=== PATIENT | female | born 1990 | race Caucasian/White ===

== ENCOUNTER → 2019-12-16 | Outpatient (REF) | payer OTHER ==
[2019-12-16 13:50] LABS: HEMATOCRIT 37.7 % (36.0-47.0); HEMOGLOBIN 12.5 g/dl (12.0-15.5); MEAN CORPUSCULAR HEMOGLOBIN 28.3 pg (27.0-33.0); MEAN CORPUSCULAR HGB CONC 33.2 g/dl (32.0-36.5); MEAN CORPUSCULAR VOLUME 85.5 fl (80.0-96.0); PLATELET COUNT, AUTOMATED 260 10^3/uL (150-450); RED BLOOD COUNT 4.41 10^6/uL (4.00-5.40); WHITE BLOOD COUNT 6.2 10^3/uL (4.0-10.0)
[2019-12-16 15:00] LABS: HEPATITIS C VIRUS ABY INDEX 0.1 INDEX (<0.8); HIV 1&2 SCREEN CENTAUR NEGATIVE (NEGATIVE)
[2019-12-18 14:12] LABS: HSV TYPE I IgM AB <1:10 titer (<1:10); HSV TYPE II IgG SPECIFIC <0.91 index (0.00-0.90); HSV TYPE II IgM ABY <1:10 titer (<1:10)
== END ==
LOC: M PLALAB 09:36
PROVIDERS: ATTEND Obstetrics & Gynecology
DX: Z34.91 Encounter for supervision of normal pregnancy, unspecified, first trimester (principal); Z3A.09 9 weeks gestation of pregnancy

== ENCOUNTER → 2020-01-06 | Outpatient (REF) | payer OTHER | LOC: M PLALAB 11:38 | PROVIDERS: ATTEND Obstetrics & Gynecology | DX: Z34.91 Encounter for supervision of normal pregnancy, unspecified, first trimester (principal); Z3A.12 12 weeks gestation of pregnancy ==

== ENCOUNTER → 2020-01-06 | Outpatient (CLI) | payer OTHER | LOC: M PLALAB 12:01 | PROVIDERS: ATTEND Advanced Practice Midwife | DX: Z34.81 Encounter for supervision of other normal pregnancy, first trimester (principal); Z3A.00 Weeks of gestation of pregnancy not specified ==

== ENCOUNTER → 2020-02-01 | Outpatient (CLI) | payer OTHER, SELFPAY | LOC: M LABSMTC 17:26 | PROVIDERS: ATTEND Pediatrics | DX: Z20.828 Contact with and (suspected) exposure to other viral communicable diseases (principal) ==

== ENCOUNTER → 2020-02-24 | Outpatient (CLI) | payer OTHER ==
--- NOTE | 2020-02-24 11:59 | REP ---
INDICATION: ANATOMY COMPARISON: None. TECHNIQUE: Transabdominal obstetrical ultrasound with color Doppler evaluation. FINDINGS: Examination demonstrates a single live intrauterine in transverse presentation. motion is identified by technologist. Placenta is noted posterior and grade 0 without evidence for placenta previa or abruption. Amniotic fluid volume is normal. Cervix measures 3.5 cm in length and appears closed.. Gestational age by LMP 19 weeks 3 days with ERIC 07/17/2020. Gestational age by current measurements 19 weeks 3 days with ERIC 07/17/2020. FHR equals 150 beats per minute. BPD: 4.4 cm 19 weeks 2 days HC: 16.6 cm 19 weeks 2 days AC: 13.9 cm 19 weeks 2 days FL: 3.1 cm 19 weeks 4 days HL: 3.0 cm 19 weeks 6 days HC/AC: 1.20 Estimated weight 291 grams (46thpercentile). Anatomical assessment demonstrates normal structures including cranium, choroid plexus, cavum, cerebellum/posterior fossa, facial features, lungs, four-chamber heart/ventricular outflow tracts, diaphragm, stomach, cord insertion/three-vessel cord, kidneys/bladder, spine, and extremities. IMPRESSION: Single live intrauterine in transverse lie demonstrating appropriate interval growth. Anatomical assessment is complete and normal. <Electronically signed by Abel Gonzales > 02/24/20 [id number]
== END ==
LOC: M WHC 10:10
PROVIDERS: ATTEND Obstetrics & Gynecology
DX: Z36.9 Encounter for antenatal screening, unspecified (principal); Z3A.19 19 weeks gestation of pregnancy

== ENCOUNTER → 2020-04-15 | Outpatient (REF) | payer OTHER ==
[2020-04-15 15:53] LABS: HEMATOCRIT 34.3 % (36.0-47.0); MEAN CORPUSCULAR HEMOGLOBIN 27.4 pg (27.0-33.0); MEAN CORPUSCULAR HGB CONC 32.1 g/dl (32.0-36.5); MEAN CORPUSCULAR VOLUME 85.3 fl (80.0-96.0); PLATELET COUNT, AUTOMATED 239 10^3/uL (150-450); RED BLOOD COUNT 4.02 10^6/uL (4.00-5.40); WHITE BLOOD COUNT 8.2 10^3/uL (4.0-10.0)
== END ==
LOC: M PLALAB 11:57
PROVIDERS: ATTEND Advanced Practice Midwife
DX: Z34.92 Encounter for supervision of normal pregnancy, unspecified, second trimester (principal)

== ENCOUNTER → 2020-06-15 | Outpatient (REF) | payer OTHER | LOC: M SFHCWAGY 16:53 | PROVIDERS: ATTEND Advanced Practice Midwife | DX: Z36.89 Encounter for other specified antenatal screening (principal) | CPT/HCPCS: 87081; G0463 ==

== ENCOUNTER 2020-07-13 12:00 | Inpatient (IN) | payer OTHER ==
[~2020-07-13] VITALS: Ht 157.5 cm; Wt 75.5 kg
[2020-07-13] MEDS ORDERED: LIDOCAINE 1% MDV 20ML VIAL SC ONE (12:15)
[2020-07-13] MEDS ORDERED: METHYLERGONOVINE MALEATE 0.2 MG/ML VIAL (J2210) IM PRN (12:45)
[2020-07-13] MEDS ORDERED: OXYTOCIN INJ 10 UNITS/ML VIAL (J2590) IM PRN (12:45)
[2020-07-13] MEDS ORDERED: OXYTOCIN INJ 10 UNITS/ML VIAL (J2590) ONE (12:59)
[2020-07-13] MEDS ORDERED: METHYLERGONOVINE MALEATE 0.2 MG/ML VIAL (J2210) ONE (12:59)
[2020-07-13] MEDS ORDERED: MEASLES,MUMPS,RUBELLA VACCINE INJ (MMR-II) (90707) SC SCH (13:05)
[2020-07-13] MEDS ORDERED: ACETAMINOPHEN TAB 650MG DOSE (2X325MG) PO PRN (13:05)
[2020-07-13] MEDS ORDERED: ACETAMINOPHEN 500 MG TAB PO PRN (13:05)
[2020-07-13] MEDS ORDERED: DIBUCAINE 1% OINTMENT 30GM TOP PRN (13:05)
[2020-07-13] MEDS ORDERED: IBUPROFEN 600MG TAB PO PRN (13:05)
--- NOTE | 2020-07-13 13:13 | HPE ---
HISTORY AND PHYSICAL DATE OF ADMISSION: 07/13/2020 HISTORY OF PRESENT ILLNESS: Gerri is a 29-year-old 2, para 2-0-0-2 now, who is being admitted to labor and delivery following spontaneous vaginal delivery in the vehicle en route to the hospital. She did deliver a live male weighing 3450 grams, 7 pounds 10 ounces. No apgars were assigned as they were in the vehicle. The time of delivery was 11:43 per father of the baby. Gerri was stable upon arrival to the hospital. Her care was initiated at [facility] in the first trimester. Her course has been uncomplicated. OBSTETRIC HISTORY: Spontaneous vaginal delivery at 40 weeks of 8 pound 2 ounce female vaginally with no complications. OBSTETRIC LABORATORY DATA: Blood type O positive. Antibody screen negative. Syphilis is nonreactive. Hepatitis B negative. Hepatitis C negative. Gonorrhea and chlamydia negative. HIV negative. Rubella immune. Urine culture negative. GBS negative. PAST MEDICAL HISTORY: Non-contributory. PAST SURGICAL HISTORY: [place] tooth extraction. FAMILY HISTORY: Hypertension. SOCIAL HISTORY: The patient is . She is a nonsmoker. She denies alcohol and drug use. She denies history of abuse physical, sexual, and emotional. She does report a remote history of a sexually transmitted infection; however, she cannot recall what the infection was. ALLERGIES: No known drug allergies. CURRENT MEDICATIONS: vitamin. ESTIMATED DATE OF CONFINEMENT: 07/18/2020, based on last menstrual period and confirmed by first trimester ultrasound. DELIVERY NOTE: Upon arrival, she is alert and oriented x3. Blood pressure is stable at 112/86, pulse 86. She delivered the placenta via Jolly mechanism with three-vessel cord at 1208. Uterine hemostasis was achieved with Pitocin 10 units IM and methergine 0.2 mg IM and uterine fundal massage. Estimated blood loss 300 mL. Her perineum and vagina were inspected, noted to have a first-degree midline laceration. The laceration was infiltrated with 1% Lidocaine and repaired with 3-0 Vicryl Rapide in the usual fashion. ASSESSMENT: Immediate patient following spontaneous vaginal delivery in the vehicle. PLAN: Admit the patient to labor and delivery. Routine labs. Out of bed and regular diet. Will be transferred to the care unit shortly.
[2020-07-13] MEDS ORDERED: METHYLERGONOVINE MALEATE 0.2 MG TAB PO PRN (13:30)
[2020-07-13] MEDS ORDERED: RHOGAM 300 MCG (1500 IU) INJ (J2790) IM SCH (13:30)
[2020-07-13 15:14] VITALS: BP 118/66
[2020-07-13 18:00] VITALS: BP 124/71
[2020-07-13] MEDS: DOCUSATE SODIUM 100MG CAPSULE PO PRN (19:21)
[2020-07-13] MEDS: IBUPROFEN 800 MG TAB PO PRN (22:08)
[2020-07-14 06:21] VITALS: BP 126/81
[2020-07-14] MEDS: IBUPROFEN 800 MG TAB PO PRN (08:43)
[2020-07-14] MEDS: DOCUSATE SODIUM 100MG CAPSULE PO PRN (08:47)
[2020-07-14] MEDS ORDERED: PRENATAL VITAMINS CHEWABLE TABLET PO SCH (09:00)
[2020-07-14] MEDS ORDERED: IBUP80TA PO (14:01)
[2020-07-14] MEDS ORDERED: DOK1CAP7 PO (14:01)
== END 2020-07-14 14:40 | disposition home or self-care (01) | DRG 776 ==
LOC: M LDI 12:00 → M OBS 15:05
PROVIDERS: ADMIT Advanced Practice Midwife; ATTEND Advanced Practice Midwife
PROC: 0HQ9XZZ Repair Perineum Skin, External Approach (ICD-10-PCS; principal; 2020-07-13)
DX: O70.0 First degree perineal laceration during delivery (principal); Z3A.39 39 weeks gestation of pregnancy